=== PATIENT | female | born 1980 | race Caucasian/White ===

== ENCOUNTER 2018-05-21 16:31 | Outpatient (CLI) | payer OTHER ==
[2018-05-21 17:04] LABS: #Eosinphils 0.2 thou/uL (0.0-0.7); #Lymphocytes 2.3 thou/uL (1.20-3.40); #Monocytes 0.4 thou/uL (0.11-0.59); #Neutrophils 3.3 thou/uL (1.40-6.50); %Eosinophils 2.7 % (0.0-10.0); %Lymphocytes 37.4 % (21.0-51.0); %Monocytes 6.8 % (0.0-10.0); %Neutrophils 53.1 % (42.0-75.0); Hemoglobin 13.9 g/dL (12.0-16.0); Mean Corpuscular HGB CONC 33.9 g/dL (32.0-36.0); Mean Corpuscular Hemoglobin 31.5 pg (27.0-31.0); Mean Corpuscular Volume 92.8 fL (78.0-98.0); Mean Platelet Volume 6.3 fL (7.4-10.4); Platelet Count 252 thou/uL (130-400); RBC Distribution Width 11.7 % (11.5-14.5); Red Blood Cell (RBC) Count 4.41 mill/uL (4.20-5.40); White Blood Cell (WBC) Count 6.3 thou/uL (4.8-10.8)
[2018-05-21 17:09] LABS: BHCG - Serum Negative (NEGATIVE); Pregs Control Background? CLEAR/WHITE (CLR/WHITE); Pregs Control Bar Appear? YES (CONTROL BAR)
== END 2018-05-21 16:32 | disposition home or self-care (01) ==
LOC: LABBT 16:31
PROVIDERS: ATTEND Surgery
DX: Z01.812 Encounter for preprocedural laboratory examination (principal); K43.9 Ventral hernia without obstruction or gangrene
CPT/HCPCS: 84703; 85025

== ENCOUNTER 2018-05-26 05:56 | Day surgery (SDC) | payer OTHER ==
[2018-05-21 16:49] VITALS: BMI 32.6
[2018-05-26] MEDS ORDERED: Bupivacaine/Epinephrine 0.25% 30 ML VIAL ONE (06:41)
[2018-05-26] MEDS ORDERED: Fentanyl 100 MCG/2 ML VIAL ONE ×3 (06:46→10:40)
[2018-05-26] MEDS ORDERED: Levofloxacin 500 mg/D5W 100 ml Premix Bag ONE ×2 (06:56→08:04)
[2018-05-26] MEDS ORDERED: Midazolam HCl 2 mg/2 ml Vial ONE (07:19)
--- NOTE | 2018-05-26 09:35 | OP ---
PREOPERATIVE DIAGNOSIS: Epigastric ventral hernia. SURGEON: Vasile Isidro M.D. PROCEDURE PERFORMED: Laparoscopic ventral hernia repair with mesh. INDICATIONS: The patient is a 38-year-old female with enlarging soft tissue hernia just above the um bilicus in the midline. She has had no previous surgeries. FINDINGS: A 2 cm defect containing about 4 cm of preperitoneal fat that was able to be completely re moved. PROCEDURE IN DETAIL: After informed consent was obtained, the patient was taken to the operating dionte m and given general endotracheal anesthesia. Placed in the supine position, right side was slightly bumped. Her flank and abdomen prepped and draped in usual fashion. Local anesthesia infiltrated sub cutaneously and deep. A transverse right flank incision was performed. A Veress needle inserted. D rop test performed. Pneumoperitoneum was created to a volume of 2 liters of carbon dioxide. Utilizi ng a bladeless 12 mm trocar and 0-degree laparoscope, direct visual entry in the abdominal cavity was performed. Pneumoperitoneum was created to a pressure of 12 mmHg, and under direct vision, two 5-mm ports were placed lateral right abdomen. Just at the base of the falciform ligament, there was a de fect. The peritoneum was opened there with the LigaSure. Once the peritoneum was opened, is able to reduce the preperitoneal fat. There was quite a bit of preperitoneal fat up in the defect, but I wa s able to get it cleaned. Then continued to trim back the falciform ligament from the anterior abdom inal wall with the LigaSure. Then the defect was closed with a 0 V-Loc PDS suture transversely. The n used an 11 cm round Proceed mesh, put 4 sutures in 4 quadrants of 0 Ethibond, rolled it, inserted i t intraabdominally, and then grasp the sutures individually to optimally cover the defect. These wer e then tied down and the mesh further secured to the abdominal wall with a SecureStrap Tacker. Hemos tasis was assured. Trocars and retractors removed. The skin closed with interrupted 4-0 Rapide. De rmabond applied. The patient tolerated the procedure well and was transferred to recovery in good co ndition. Sponge and needle count verified correct x2.
[2018-05-26] MEDS ORDERED: Morphine 4 MG/ML VIAL ONE (09:40)
[2018-05-26] MEDS ORDERED: Promethazine HCl 25 MG/ML VIAL ONE (10:06)
[2018-05-26] MEDS ORDERED: HYDROcodone/Acetaminophen 5/325 mg Tablet ONE (12:24)
[2018-05-26] MEDS ORDERED: Lidocaine 1% PF 5 ML VIAL ONE (17:08)
[2018-05-26] MEDS ORDERED: ePHEDrine/0.9% NaCl/PF SYRINGE 50 mg/10 ml ONE (17:08)
[2018-05-26] MEDS ORDERED: PROPOFOL 200 MG/20 ML VIAL ONE (17:08)
[2018-05-26] MEDS ORDERED: PHENYLEPHRINE-NS 100 MCG/ML 10 ML SYRINGE ONE (17:08)
[2018-05-26] MEDS ORDERED: Glycopyrrolate 0.2 MG/ML 5 ML SYRINGE ONE (17:08)
[2018-05-26] MEDS ORDERED: Ketorolac Tromethamine 30 MG/ML VIAL ONE (17:08)
[2018-05-26] MEDS ORDERED: Ondansetron HCl/PF 4 MG/2 ML Vial ONE (17:08)
[2018-05-26] MEDS ORDERED: Dexamethasone 20 MG/5 ML VIAL ONE (17:08)
== END 2018-05-26 12:35 | disposition home or self-care (01) ==
LOC: SDC 05:56
PROVIDERS: ATTEND Surgery
PROC: 0WUF4JZ Supplement Abdominal Wall with Synthetic Substitute, Percutaneous Endoscopic Approach (ICD-10-PCS; principal; 2018-05-26)
DX: K43.9 Ventral hernia without obstruction or gangrene (principal); Z88.0 Allergy status to penicillin
CPT/HCPCS: 96374; J1100; J1885; J1956; J2001; J2250; J2270; J2405; J2550; J2704; J3010

== ENCOUNTER 2018-06-03 15:32 | Emergency (ER) | payer OTHER ==
[2018-06-03] MEDS ORDERED: Promethazine HCl 25 MG/ML VIAL ONE (16:56)
[2018-06-03 17:36] LABS: #Eosinphils 0.1 thou/uL (0.0-0.7); #Lymphocytes 1.1 thou/uL (1.20-3.40); #Monocytes 0.4 thou/uL (0.11-0.59); #Neutrophils 3.8 thou/uL (1.40-6.50); %Basophils 0.1 % (0.0-1.0); %Eosinophils 1.7 % (0.0-10.0); %Lymphocytes 20.3 % (21.0-51.0); %Monocytes 6.8 % (0.0-10.0); Hemoglobin 14.1 g/dL (12.0-16.0); Mean Corpuscular HGB CONC 33.7 g/dL (32.0-36.0); Mean Corpuscular Hemoglobin 31.1 pg (27.0-31.0); Mean Corpuscular Volume 92.3 fL (78.0-98.0); Mean Platelet Volume 6.5 fL (7.4-10.4); Platelet Count 233 thou/uL (130-400); RBC Distribution Width 11.5 % (11.5-14.5); Red Blood Cell (RBC) Count 4.52 mill/uL (4.20-5.40); White Blood Cell (WBC) Count 5.4 thou/uL (4.8-10.8)
[2018-06-03 17:44] LABS: Bilirubin Negative (Negative); Blood, Urine Small (Negative); Clarity CLEAR (Clear); Glucose, Urine (Dipstick) Negative (Negative); Leukocyte Negative (Negative); Nitrite Negative (Negative); Protein, Urine (Dipstick) Negative (Neg-Trace); Urobilinogen 0.2 mg/dL (0.2-1.0); pH, Urine 6.5 (5.0-9.0)
[2018-06-03 17:46] LABS: Bacteria/HPF None Seen HPF (None Seen); Hyaline Casts/LPF 0-3 HYALINE CAST LPF (0-3 Hyaline); Pathc Cast-AUWi Flag 0.14 (0-2.49); RBC/HPF 0-3 HPF (0-3); Squamous Epithelial 0-3 HPF (0-3); WBC/HPF None Seen HPF (0-3)
[2018-06-03 17:48] LABS: Specific Gravity, Urine 1.004 (1.002-1.036)
[2018-06-03 17:58] LABS: ALT (SGPT) 133 U/L (8-55); AST (SGOT) 122 U/L (5-34); Albumin 3.6 g/dL (3.5-5.0); Alkaline Phosphatase 118 U/L (40-150); Anion Gap 12 mmol/L (10-20); BUN (Urea Nitrogen) 9 mg/dL (7.0-18.7); Bilirubin, Total 0.5 mg/dL (0.2-1.2); Calc. Creatinine Clearance 0 mL/min (70-130); Calcium 8.9 mg/dL (7.8-10.44); Carbon Dioxide 23 mmol/L (22-29); Chloride 108 mmol/L (98-107); Estimated GFR-MDRD Greater than 90; Globulin 3.2 g/dL (2.4-3.5); Glucose 102 mg/dL (70-105); Lipase 20 U/L (8-78); Protein, Total 6.8 g/dL (6.0-8.3); Sodium 139 mmol/L (136-145)
[2018-06-03 19:03] LABS: Pregnancy Test - Urine (BHCG) Negative (Negative); Pregu Control Background? CLEAR/WHITE (CLR/WHITE); Pregu Control Bar Appear? YES (CONTROL BAR); Specific Gravity 1.004 (1.002-1.036)
== END 2018-06-03 18:51 | disposition home or self-care (01) ==
LOC: ERS 15:32
DX: R10.9 Unspecified abdominal pain (principal); K64.4 Residual hemorrhoidal skin tags; F41.9 Anxiety disorder, unspecified
CPT/HCPCS: 36415; 80053; 81003; 81015; 81025; 83690; 85025; 96372; J2550